=== PATIENT | male | born 1940 | race Caucasian/White ===

== ENCOUNTER 2020-11-17 15:25 | Emergency (ER) | payer OTHER ==
[~2020-11-17] VITALS: Ht 177.8 cm; Wt 79.4 kg
[~2020-11-17 15:25] MED LIST: ASPIRIN325 PO; CALM PO; CELEBREX PO; DIATOMACEOUS EARTH; NEURONTIN 300300 M1 PO; OXYCODONE HCL 55 MG PO; PEPCID AC20 M1 PO; PERCOCET 5-3251 EACH PO; XARELTO10 MG PO; [UNRECOGNIZED DRUG - OTHER] PO
[2020-11-17 15:50] LABS: URINE BILIRUBIN NEGATIVE (Negative); URINE BLOOD NEGATIVE (Negative); URINE CLARITY CLEAR; URINE COLOR YELLOW; URINE GLUCOSE-RANDOM* NEGATIVE (Negative); URINE KETONES NEGATIVE (Negative); URINE LEUKOCYTES-REFLEX NEGATIVE (Negative); URINE NITRITE-REFLEX NEGATIVE (Negative); URINE PROTEIN (DIPSTICK) NEGATIVE (Negative); URINE SPECIFIC GRAVITY >= 1.030 (1.005-1.035); URINE UROBILINOGEN 0.2 E.U./dl (0.2-1.0)
[2020-11-17 16:18] LABS: ABSOLUTE NEUTROPHILS 2.2 thou/uL (1.4-8.2); BASOPHILS 1.1 % (0.0-2.0); HEMATOCRIT 43.2 % (42.0-52.0); HEMOGLOBIN 14.8 gm/dL (14.0-18.0); LYMPHOCYTES 37.5 % (24.0-44.0); MCH 33.3 pg (26.0-34.0); MCHC 34.2 g/dL (28.0-37.0); MCV 97.3 fL (80.0-100.0); MONOCYTES 11.3 % (1.0-8.0); PLATELET COUNT 229 thou/uL (150-400); POLYS 41.1 % (36.0-66.0); RBC 4.44 mil/uL (4.50-6.00); RDW 12.9 % (10.5-14.5); WBC 5.3 thou/uL (4.0-11.0)
[2020-11-17 16:28] LABS: CALCIUM 9.3 mg/dL (8.5-10.1); CREATININE 1.1 mg/dL (0.7-1.3); POTASSIUM 4.2 mmol/L (3.5-5.1)
[2020-11-17 16:34] LABS: ALBUMIN 3.7 g/dL (3.4-5.0); TOTAL BILIRUBIN 0.3 mg/dL (0.2-1.0); TOTAL PROTEIN 7.5 g/dL (6.4-8.2)
[2020-11-17 16:47] VITALS: BP 121/76
--- NOTE | 2020-11-18 07:15 | EKG ---
[place] [address] [facility] [employer] [place] [address] ELECTROCARDIOGRAM REPORT Name: AMERICA SMITH [id number] Admission: 11/17/20 Attend Phys: Discharge: 11/17/20 Date of : 42 Report #: [id number] [facility] ED Test Date: 2020-11-17 Test Time: 15:54:23 Pat Name: AMERICA SMITH Department: Room: Gender: Management Planner: : 1940 Requested By: Juan Lea Order Number: [id number] MD: Bakari Mackey Measurements Intervals [place] Rate: 79 P: 9 SC: 228 QRS: -34 QRSD: 153 T: -2 QT: 393 QTc: 451 Interpretive Statements Sinus rhythm Atrial premature complex Prolonged SC interval Right bundle branch block No previous ECG available for comparison Electronically Signed On 11-18-2020 7:15:38 CDT by Bakari Mackey [email or web address] <ELECTRONICALLY SIGNED> By: Bakari Mackey MD, [facility] 11/18/20 0715 1554 1554 Bakari Mackey MD, FACC /EPI
== END 2020-11-17 16:48 ==
LOC: ER 15:25
PROVIDERS: Physician Assistant
DX: F91.1 Conduct disorder, childhood-onset type (principal); R45.1 Restlessness and agitation; F03.90 Unspecified dementia, unspecified severity, without behavioral disturbance, psychotic disturbance, mood disturbance, and anxiety; Z79.2 Long term (current) use of antibiotics; Z79.82 Long term (current) use of aspirin; Z90.49 Acquired absence of other specified parts of digestive tract; Z90.89 Acquired absence of other organs; Z20.822 Contact with and (suspected) exposure to COVID-19

== ENCOUNTER 2020-11-17 16:20 | Inpatient (IN) | payer OTHER ==
[2020-11-17 17:00] VITALS: BP 130/81
--- NOTE | 2020-11-17 19:54 | NUR ---
Admitted via ER for aggressive behavior toward hospice caregivers and granddaughter. Hx of dementia, arthritis, tonsilectomy and seizure d/o as a child. Alert and orientated X1. Denies SI/HI. Flat affect, calm and cooperative. Breath sounds clear. Reg HR auscultated. Color pink with brisk capillary refill and palpable peripheral pulses +2/+4. No edema noted. Independent with voiding. States he had BM yesterday. Active bowel sounds over soft, rounded abdomen. Ambulates with regular gait. States he walks with cane at home. Consents obtained via phone from DPOA and daughter Preethi Sanchez. Dr. Hernandez here, placed orders. CLAIM REP Cindi notified of new admission, on unit seeing pts for Dr. Rajput. States she will notifiy Dr. Rajput and that consult will take place on nights. Ate dinner. Ambulating in halls requesting to go home.
--- NOTE | 2020-11-18 05:15 | NUR ---
11-17-20 CARE TRANSFERRED 0 OBSERVED PT PACING IN HALLWAY. PT AAOX1, VSS, RR EVEN AND NONLABORED ON RA. PT DENIES SI/HI AND PAIN. PT PRESENTS ANGRY AND AGITATED. PT REPORTS HE NEEDS TO GO HOME TO HIS . PT AGITATION INCREASED AND PT BECAME INTRUSIVE AND COULD NOT BE DIRECTED OUT OF ANOTHER PT ROOM AND SECURITY WAS CALLED. HCP Marlena GONCALVES, TACHO CONTACTED AND ORDERS RECEIVED AND ADMINISTED. LATER PT HAD CALMED DOWN AND WAS SOCIAL INTERACTIVING WITH OTHERS AND WAS COOPERATIVE. LATER PT WAS ASSISTED TO ROOM AND PT VOIDED IN TOLIET, YELLOW, NO SIDMENT NOTED. PT BED WAS ADJUSTED FOR COMFORT, LOWEST POSITION, LOCKED AND ALARM SET. PT WILL CONTINUE TO BE MONITOR PER [facility] PROTOCOL.
[2020-11-18 06:54] LABS: CHOLESTEROL 162 mg/dL (<200); HDL CHOLESTEROL 45 mg/dL (>40); LDL CHOLESTEROL 88 mg/dL (<100); TC:HDL 3.6 Ratio (Not establshd); TRIGLYCERIDE 146 mg/dL (<150); VLDL 29 mg/dL (<40)
[2020-11-18 06:56] LABS: SERUM ASSESSMENT Clear
[2020-11-18 09:20] VITALS: BP 122/89
--- NOTE | 2020-11-18 18:26 | NUR ---
Assumed pt care at 0700. pt was in the day room socializing. Alert and oriented to person. irritable and aggressive upon assessments. pt was confused. NO sign of si/hi noted. No c/o pain. vital sign stable. Pt took med whole, no difficulty noted. No sign of acute distress NOTED upon assessments. Ambulates with a steady gait. Pt was aggressive and very intrusive with other pt. pt pulls other pts blanket, water bottle and other belongings away from them. pt was redirected. pt continued to be intrusive. staff redirected pt and he was aggressive towards staff pointing a pencil at staff. Dr Hernandez was notified about pt behavior. 1309 PO PRN olanzapine was administered. pt continue to pulled and lift chairs in the day room. pt was redirected. PT continued to be very intrusive to other pt in a threatening manner. pt was redirected. pt grabbed staff name homero. pt was redirected. Security was called for assistance. 1344 Dr Hernandez was notified, Geodon was ordered and administered. Pt began to pace the unit wandering into other pt rooms. pt was redirected. pt continue to be aggressive, extremely agitated, and intrusive.1716 LORAZEPAM IM was ADMINISTERED. PT WAS ONE TO ONE WITH A STAFF IN HIS ROOM. At 1811 and 1815 Hadol and LORAZEPAM WAS ADMINISTERED FOR increased agitation and aggressiveness. At this TIME PT IS IN HIS ROOM WITH STAFF MONITORING HIM. Will CONTINUE TO MONITOR.
--- NOTE | 2020-11-18 19:04 | NUR ---
PT NOTED TO BE INTRUSIVE WITH [facility] PEERS-ENTERING ROOMS OF OTHERS AND TOUCHING AND YELLING AT THEM. WHEN STAFF ATTEMPTED TO REDIRECT BECAME COMBATIVE STRIKING OUT AT STAFF BANGING ON EXIT DOORS AND DOMINGUEZ-GEODON 15MG GIVEN IM AT 1300 WITH ASSISTANCE OF SECURITY.DR PUTNAM ON FLOOR AND VERBAL ORDER RECEIVED FOR 1;1 -NURSING CANT GANG SAWYER CONTACTED. PT CONTINUES AGITATED,INTRUSIVE AND COMBATIVE DR. PUTNAM CONTACTED AND ORDERS RECIVED FOR ATIVAN 1.5MG IM-GIVEN AT 1615 IN LEFT HIP WITH ASSISTANCE OF SECURITY-THIS RN 1;1 WITH PATIENT PER MD ORDER FOR COMBATIVNESS,INTRUSIVE BEHAVIOR-STRIKING OUT AT STAFF AND PEERS. REMAINED AWAKE AND PACING IN HALLWAYS,POUNDING ON EXIT DOORS AND DOMINGUEZ,ENTERED MALE PEERS ROOM AND WAS GRABBING HIS ARM STATING "COME ON GET UP-2-3 STAFF ATTEMPTED TO REDIRECT AND HE STRUCK THIS RN" DR PUTNAM CONTACTED BY Dorothea MAX MATE FIRST AND ORDER RECEIVED FOR 4 POINT LEATHER RESTRAINTS-NURSING CANT GANG SAWYER CONTACTED-NO RETURN CALL RECEIVED-SECURITY TO FLOOR AT 1645 AND PLACED IN BILATERAL WRIST AND ANKLE RESTRAINTS IN ROOM-STAFF AT BEDSIDE AND CSM/FLUIDS/TOIOLETING OFFERED Q 15 MIN PER PROTOCOL. RESPIRATIONS EVEN AND REGULAR-REMAINS RESTLESS WILL CLOSE EYES FOR SHORT PERIODS OF TIME-CONTINUES TO YELL OUT FOR UNSEEN OTHERS AND STATES HE NEEDS TO GO OUT AND GET THE HORSES. SKIN W/D-TAKES SIPS OF WATER Q 10-15 WHEN OFFERED. REPEAT MESSAGE LEFT FOR NURSING CANT GANG SAWYER AT 1745 RE COMPLETION OF FACE TO FACE ASSESSMENT PER POLICY-AWAITING RETURN CALL. [id number] DR HARRISON CONTACTED AND UPDATED RE PT STATUS,VS,-INFORMED OF CONTINUED RESTLESSNESS,AGITATION AND INABILITY TO FOLLOW VERBAL COMMANDS/REDIRECT WITHOUT SIGNIFICANT AGITATION-PT HALDOL 7.5MG AND ATIVAN 0.5MG GIVEN IM AT 1815 -REMAINED RESTLESS,YELLING AND HALLUCINATING UNTIL APPROX 1900 WHEN SECURITY CONTACTED AND REMOVED FROM RESTRAINTS WAS CALM,ABLE TO FOLLOW VERBAL DIRECTIONS. 1;1 AT BEDSIDE PER MD ORDER. DAUGHTER PHANI CHANG CONTACTED BY THIS RN AT 1700 REGARDING PT BEING PLACED IN RESTRAINTS AND IM MEDICATIONS GIVEN. SHE STATES UNDERSTANDING AND DENIES QUESTIONS/CONCERNS. A
[2020-11-18 23:06] LABS: GLYCOHEMOGLOBIN (HGB A1C) 5.7 % (4.8-5.6)
--- NOTE | 2020-11-19 04:53 | NUR ---
PRIOR TO SHIFT REPORT OBSERVED SECURITY WITH OFF GOING RN REMOVING 4 POINT RESTRAINTS OBSERVED PT REFUSING VS. 11-18-20 CARE TRANSFERRED 1914. PT PRESENTED RESTLESS AND AGITATED WITH EYES CLOSED. LATER PT AAOX1, 2ND ATTEMPT FOR VS AND PT BECAME AGITATED, PT STILL MAINTAINING EYES CLOSED. DURING MEDICATION ADMIN, PT REFUSED PO MEDICATION. LATER PT AGITATION CONTINUE AND WAS SWATTING AND GRABBING AT STAFF. HCP CONTACTED AND ORDERS RECEIVED AND ADMIN WITH RHETT HOLD. LATER NOTED PT CALMER AND RESTING WITH EYES CLOSED. RESPONSED TO PT YELLING WITH SERVE AGITATION, STATING HE NEEDS TO LEAVE RIGHT NOW, BEGAIN SWATTING AND GRABBING STAFF. HCP CONTACTED AND ORDERS RECEIVED AND ADMIN WITH RHETT HOLD. LATER NOTED PT RESTING WITH EYES CLOSED. OF NOTE, PT HAS BEEN ON 1:1 THROUGHOUT SHIFT, WILL CONTINUE UNTIL ORDER ENDS.
--- NOTE | 2020-11-19 09:50 | NUR ---
New admit to [facility] with dementia and increased behaviors. Combative and requires 1:1 sitter. Noted with low intakes and refusals at meals. Reported weight from late 2019 216#, current weight 211#; no significant changes noted recently. Lives at home with , on hospice services and has private nursing care in the home. He is at risk for weight loss d/t refusals of meals and changes in cognition/advancement of dementia. Will add Ensure enlive at meals for additional kcal/pro. Meds and labs reviewed. Will follow weight and intake trends during stay. Low nutrition risk at this time with interventions initiated.
--- NOTE | 2020-11-19 14:12 | NUR ---
Alert and orientated to name only. Sleeping in bed until about 0930 then got up and placed in gerichair where he slept until lunch. Calm, cooperative, able to assist with transfer and with cares. Denies SI/HI. Confused speech. Up around 2 pm and ambulating under supervision with steady gait. Began exit seeking and stating that he wanted to leave. More resistant to sitting down and following direction. Took olanzapine and seraquel crushed in pudding without difficulty. Breath sounds clear. Reg HR auscultated. Color pink with brisk capillary refill and palpable peripheral pulses. Incontinent of yellow urine this AM. Active bowel sounds over soft, rounded abdomen. Currently sitting in day room without s/o distress.
[2020-11-19 16:26] VITALS: BP 133/95
--- NOTE | 2020-11-20 05:37 | NUR ---
11-19-20 CARE TRANSFERRED 0 OBSERVED PT SITTING IN DAY ROOM IN RECLINER. LATER PT AAOX1, VSS, RR EVEN AND NONLABORED ON RA, PT DENIES SI/HI AND PAIN. 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 DURING MEDICATION PT HAD NO DIFFICULTIES, BUT SHOWS AGGRESSIVE WITH MOVEMENTS. LATER OBSERVED PT TIP OVER TABLE AND PT GRABBING AT STAFF. HCP CONTACTED AND ORDERS RECEIVED AND ADMIN. LATER NOTED PT CALM AND RESTING. LATER PT BECAME RESTLESS AND TALKING, THEN CALMED DOWN AND RESTING WITH EYES CLOSED, HCP ORDERS HAVE BEEN CARRIED OUT ON 1:1. PT WILL CONTINUE TO BE MONITOR PER [facility] PROTOCOL.
--- NOTE | 2020-11-20 09:02 | NUR ---
0902 assumed care of pt from overnight nurse. pt sitting in gerichair in dining room at beginning of shift. pt answers to name, alert times 1. pt lungs clear,bowel sounds present and abdomen soft. pt compliant w medications. pt requested cup of coffee but refusing breakfast at this time. pt refused to have vital signs taken. pt denies pain, HI/SI/AH/VH at this time. pt is a 1:1 for agitation, hitting of staff. will cont to monitor pt for safety and behaviors.
--- NOTE | 2020-11-20 11:28 | NUR ---
1116 pt in dining room in [facility] attempted to jump out of the chair. pt aggressive and attempting to hit staff. pt was given 5 mg of Zyprexa IM for agitation. pt tolerated the injection w no issues. will cont to monitor pt for behaviors and safety.
--- NOTE | 2020-11-20 11:59 | NUR ---
1200 pt sitting in Gerichair asleep w no issues. pt no eating lunch at this time. will cont to monitor for behavior and safety.
--- NOTE | 2020-11-20 14:15 | NUR ---
1415 this nurse talked w son after confirming security code. SonRic wanting to get an update on pt behavior and when pt will possibly discharge home. SonRic stated that his mother is in process of dying and thinks that is what is causing the patient's stress level. Encouraged the son to talk with doctor and oncology social work for possible discharge information.
--- NOTE | 2020-11-20 14:17 | NUR ---
1517 this nurse reutrning phone call from this patient's daughter. VM left at phone number given using HIPAA, for daughter to return this nurse's phone call.
--- NOTE | 2020-11-20 14:24 | NUR ---
1300 pt with behaviorial issues. pt attempting to get out of gerichair and slide down to the floor. pt refusing to keep yellow t shirt on after several attempts to put the t shirt on. pt goes in and out of sleep throughout the afternoon. pt placed back on 1:1 while awake for safety. will cont to monitor the pt for behavior and safety/
--- NOTE | 2020-11-20 17:07 | NUR ---
1707 pt given 5 mg Zyprexa IM for agitation. Pt pulling on clothes, trying to get out of gerichair without assistance. Pt pulling legs off of gerichair and trying to get up. will cont to monitor for behavior and safety.
--- NOTE | 2020-11-20 17:41 | NUR ---
JOSAFAT and Dr. Muñoz participated in a family meeting via phone. Included on this call was Codi( Pt's daughter in law [phone]), Trish (Interim hospice provider [phone]), Preethi (Pt's daughter/DPOA [phone]), William ( Pt's son-in- law). An update was given on the Pt. Medications were discussed. A recommendation for 24 hour care that may include a LTC placement was given. Codi stated " Why can't he stay in his home instead of being in that place". Dr. Muñoz explained the barriers that may be posed with the Pt being in the home without the proper supports. Currently there is 1 personal care aid in the home caring for the Pt and his . Codi then asked " Why can't you all put someone in the home to help then, why is he there any way". JOSAFAT educated on the role of the hospital to assess, treat, provide a recommendations for care, and assist family with setting up after care services for the Pt. JOSAFAT explained that the hospital could not provide a service provider to come into the home to provide care for the Pt. JOSAFAT explained that the DPOA would be responsible for ensuring the Pt has the proper care if they chose to have the Pt return home. JOSAFAT explained one care provider was not enough to care for two people with high needs in the home. They family would need to add additional caretakers to ensure the Pt is safe. William stated that he and Preethi live next door and would be able to provide additional services when needed for the Pt. William stated they would like the Pt to return to his home after the Pt's medications are adjusted and Pt's behaviors are managable. Codi asked "So is he just sitting around doing nothing all day?". JOSAFAT explained the [facility] schedule and groups. JOSAFAT offered to send the welcome infomation to the Pt. Family had no further questions or concerns. JOSAFAT sent welcome information to Codi at and resent to preethi at JOSAFAT will continue to follow
--- NOTE | 2020-11-20 18:37 | NUR ---
1829 pt trying to overturn table, trying to slide out of gerichair and yelling at staff and peers. pt oriented to self only. ordered requested for PRN. pt stated that he wants to get out of here. pt given IM 1 mg Ativan and IM 7.5 mg Haldol. pt tolerated injection w no issue. will cont to monitor pt for behaviors and safety.
[2020-11-20 19:21] VITALS: BP 117/95
[2020-11-20 19:30] VITALS: BP 117/95
--- NOTE | 2020-11-20 22:54 | NUR ---
Assumed care on 11/20/20 @ 1900, seated in alesia chair in the day room with 1:1 staff assistance while awake. Occasional calling out, and behaviors noted. Became drowsy and closed eyes, respirations even and unlabored. Awakened and accepted medications whole with pudding and water. Transferred to bed @ , bed alarm set, bed in low position. Daughter Preethi called for an update on patient. A&Ox1, respirations even and unlabored bilat, HRRR, ABD N x 4Q. Incontinent of bladder. Will continute to monitor as per unit protocol for safety and comfort.
--- NOTE | 2020-11-21 11:14 | NUR ---
Assumed pt care at 0700. pt was in the day room sleeping. pt refused vital sign assessments. pT was sedated, meds were not given. NO sign of acute distress noted at this time. No sign of si/hi noted. Pt ambulates with unsteady gait. At this time pt is sleeping on the Sharifa chair in the day room. Will continue to Monitor.
--- NOTE | 2020-11-21 14:21 | H ---
[facility] [place] [address] [place] [address] HISTORY AND PHYSICAL Name: AMERICA SMITH Room #: 523B-B ADM IN M.R.#: [id number] Admission: 11/17/20 Attend Phys: Facundo Hernandez DO Discharge: Date of : 42 Report #: [id number] THIS REPORT FOR: cc: FAM - No family physician/PCP FAM - No family physician/PCP Facundo Hernandez DO ~ DATE OF SERVICE: 11/17/2020 INPATIENT PSYCHIATRIC EVALUATION ATTENDING PSYCHIATRIST: Facundo Hernandez DO GROUP HOME WORKER: Joyce Segundo APRN; and Alexandre Haque MD, and his hospitalist team. SOURCES OF INFORMATION: Interview with the patient, collateral from nursing home visit notes as well as other medical records. The patient reportedly lives at home with his who is on hospice. 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 His daughter, Preethi Sanchez, at [phone], is his power of college service officer. Concerns were that he was wandering, leaving the home and being violent towards caregivers that are trying to help his , threatening caregivers. His main medical issue besides the dementia is the arthritis. Primary care physician is Chase Max at [phone]. The patient had a home med list that had Mobic on it, vitamin D, ibuprofen, citicoline 1000 mg tablet 2 times a day, been on Lexapro 20 mg daily, Seroquel 25 mg tablet one tablet oral 2 times a day. He had a Cipro course at the end of September, p.r.n. Haldol, looks like it is liquid Haldol and he was on scheduled Haldol 0.5 mg 3 times a day. It looks like there was a discussion on 09/07 about him being placed in a memory care unit, but the family wanted to continue. Looks like there are nursing home notes. I found Mandyal that looks like it is from May of this year, 79-year-old male admitted with primary diagnosis of senile degeneration of the brain. The patient is a poor historian. Daughter is unaware to recall what his medical history is, as the patient spent most of his focus on his . The patient states he did have his left knee replaced, but then his started getting sick before he could have surgery on the other knee. He reports he has pain in his right knee frequently. Decline has been noticed in the patient's cognition. He was managing his 's meds till towards the end of 2019. Apparently, the patient had a facial basal cell biopsy and since has cognitively a steady decline. The patient months ago would tell [facility] [address] [place] [address] HISTORY AND PHYSICAL Name: AMERICA SMITH Room #: 523B-B ADM IN M.R.#: [id number] Admission: 11/17/20 Attend Phys: Facundo Hernandez, Discharge: Date of : 42 Report #: [id number] stories about he and his from looking at a picture, now is unable to complete a story do well enough that we could even make sense of it. The patient during the visit was trying. Also, he was weighing 216 pounds on 04/20/2020; and on 05/27/2020, he was down to 200 pounds. He has been noted to wear his 's clothing. PAST MEDICAL HISTORY: Basal cell skin neoplasm, osteoarthritis, seizure disorder as a child, vitamin D deficiency. PAST SURGICAL HISTORY: Tonsillectomy. FAMILY HISTORY: The patient's mother , the patient cannot remember; father , meningitis; sister alive; daughter alive; son alive. One sister, 2 sons, 2 daughters. SOCIAL HISTORY: No alcohol use history. Never smoked. . ALLERGIES: No known allergies. RECENT LABORATORY DATA: 04/21/2020, white count 6.1, H and H 14.6 and 41.9, platelet count 244. CMP showed glucose 93, BUN 22, creatinine 0.89, EGFR 82, sodium 142, potassium 4.2, chloride 107, bicarbonate 30, calcium 6.9, total protein 4.2, albumin 2.7, bilirubin 0.4, alkaline phosphatase 66, AST 18, ALT 16, vitamin D total 23, TSH 0.97. ____ HDL 51, total cholesterol 174, triglycerides high at 238. Additional labs on the patient, from ER visit yesterday on 11/17/2020, H and H 14.8 and 43.2, white count 5.3, platelet count 229. Chemistry: Sodium 140, potassium 4.2, chloride 105, bicarbonate 30, BUN 28, creatinine 1.1, estimated GFR 65, glucose 95, calcium 9.3, total bilirubin 0.3, AST 20, ALT 26, alkaline phosphatase 72, total protein 7.5, albumin 3.7, triglycerides 146, cholesterol 162, LDL 88, HDL 45. Urinalysis was clean. COVID-19 PCR serology was negative. PHYSICAL EXAMINATION VITAL SIGNS: Temperature 36.0, pulse 61, respirations 17, BP 122/89, O2 sat 94%. MUSCULOSKELETAL EXAM: Wearing a hat. Normal gait and station, unkempt. MENTAL STATUS EXAMINATION: This is a well-developed, older than age-appearing male. Attention limited. The patient is hard of hearing. Concentration limited. Speech slow. Normal volume and tone. Thought process linear and goal directed. Thought content, focused on being discharged and going for a walk, looking to go outside. No suicidal or homicidal ideation. No auditory or visual type hallucinations. nmood/affect- depreressed, restricted, congruent Some helplessness and hopelessness. [facility] [address] [place] [address] HISTORY AND PHYSICAL Name: AMERICA SMITH Room #: 523B-B ADM IN ..#: [id number] Admission: 11/17/20 Attend Phys: Facundo Hernandez DO Discharge: Date of : 42 Report #: [id number] Memory not formally tested, known to be impaired. Insight is impaired, judgment is impaired. Fund of knowledge well below average. FORMULATION: A 80-year-old male sent out for being delusional and aggressive behavior towards hospice workers. DIAGNOSES: At this time, major neurocognitive disorder, likely due to Alzheimer's disease with behavioral disturbance. Medical comorbidities include hyperlipidemia, arthritis, possible falls. IMAGING ON THIS ADMISSION: None. PLAN: Admit to Geriatric Psychiatry Unit via DPOA. Evaluate, stabilize, obtain collateral. Regarding his current medications, continue Mobic 50 mg p.o. daily, famotidine 40 mg p.o. daily, Seroquel is 25 mg 3 times a day. He is on olanzapine p.o. with IM p.r.n., otherwise house PRNs. ESTIMATED LENGTH OF STAY: 7 to 14 days. STRENGTHS: He is insured. WEAKNESSES: Does not have a placement, is on hospice, limited social support. I am going to give a call to Ms. Sanchez and see if she can give me some additional information. <ELECTRONICALLY SIGNED> By: Facundo Hernandez DO 11/21/20 1421 1112 1338 Facundo Hernandez DO /nt
[2020-11-21 19:33] VITALS: BP 128/98
[2020-11-21 20:34] VITALS: BP 128/98
--- NOTE | 2020-11-21 21:34 | NUR ---
Assumed care on 11/21/20 @ 1900, seated in day room in a alesia chair with eyes closed, respirations even and unlabored. Takes meds whole with pudding and water. some agitation noted, continues on 1:1 while awake.
[2020-11-22 09:13] VITALS: BP 106/68
[2020-11-22 10:38] VITALS: BP 106/68
--- NOTE | 2020-11-22 14:36 | NUR ---
Assumed pt care at 0700. Pt was alert and oriented to person. Vital sign stable, active bowel sounds.Pt was confused, irritable and aggressive upon assessments. No sign of SI/HI noted upon assessments. Pt took meds whole, no difficulty noted. Ambulates with a steady gait. Pt was aggressive and agitated. pt was redirected. pt continued to be aggressive towards staff. pt was crawling, sitting on the floor. 1429 DATA MODELING SPECIALIST jl was notified of pt behaviors. Olanzapine 5mg PRN was administered. At this time pt is in the day room aggitated and aggressive. Will continue to monitor pt.
[2020-11-22 19:24] VITALS: BP 134/65
--- NOTE | 2020-11-23 02:55 | NUR ---
11-22-20 CARE TRANSFERRED 1899 OBSERVED PT SITTING IN DAY ROOM RESTING WITH EYES CLOSED IN RECLINER. LATER PT AAOX1, VSS, RR EVEN AND NONLABORED ON RA, PT DENIES PAIN AND SI/HI AND OBSERVED NO S/S OF PAIN AND NO SI/HI BEHAVIORS. PT WAS HORSE PLAYING AND ACTING LIKE HE WAS GOING TO HIT THIS CREDIT SPECIALIST, PT STATED "I WAS JUSTED TESTING YOU, YOU PASSED." DURING MEDICATION ADMIN PT HAD NO DIFFICULTIES TAKING WHOLE WITH WATER. PT IS CURRENTLY ON 1:1 WHILE AWAKE, PT WILL CONTINUE TO BE MONITOR IN DAY ROOM FOR PT SAFETY.
[2020-11-23 08:00] VITALS: BP 109/70
--- NOTE | 2020-11-23 08:31 | NUR ---
0831 ASSUMED CARE OF PT FROM OVERNIGHT NURSE. PT SITTING IN GERICHAIR SLEEPING AT BEGINNING OF SHIFT. PT ALERT TO SELF. PT DENIES PAIN. PT LUNGS CLEAR. PT BOWEL SOUND PRESENT AND ABDOMEN SOFT. PT NOT ABLE TO VERBALIZE IF SI/HI/AH/VH. PT DROWSY AT THIS TIME, BUT ABLE TO TAKE MEDICATIONS. VSS. WILL CONT TO MONITOR PT FOR BEHAVIORS AND SAFETY.
[2020-11-23 09:51] VITALS: BP 109/70
--- NOTE | 2020-11-23 11:28 | NUR ---
1128 THIS NURSE TALKED W PHANI CHANG, REGARDING THE STATUS OF PT. SECURITY CODE GIVEN BY FAMILY MEMBER. FAMILY MEMBER TO CALL LATER TO CHECK ON STATUS OF PT BEFORE END OF SHIFT OF THIS NURSE.
--- NOTE | 2020-11-23 16:09 | NUR ---
1550 pt in dining room trying to get out of gerichair without assistance and yelling and trying to hit staff. pt could not be redirected after several attenpts. MD contact for orders. Pt given 5 mg Zyprexa IM times one. will cont to monitor pt for behavior and safet.
[2020-11-23 20:13] VITALS: BP 130/65
[2020-11-23 20:40] VITALS: BP 130/65
--- NOTE | 2020-11-24 05:15 | NUR ---
PATIENT HAS BEEN SITTING UP IN REYES CHAIR IN DINING ROOM. HE HAS BEEN CALM AND COOPERATIVE. HE DENIES PAIN. NO SIGNS OF SI/HI/AVH. PATIENT TOOK MEDS WHOLE WITH WATER WITH ASSISTANCE. PT HAVING ROUTINE INCONTINENCE CHECKS. PATIENT UP IN DINING ROOM ALL NIGHT. CONTINUING TO MONITOR.
[2020-11-24 09:33] VITALS: BP 122/79
--- NOTE | 2020-11-24 12:13 | NUR ---
RT Progress Note- Ric has been minimally engaged in the milieu and recreation therapy groups since admission. Ric is difficult to engage and he has a hard time following instruction, leaving him to be more of a passive participant. Ric spends much of unscheduled time chatting to himself about work, etc when awake. SPORT PSYCHOLOGIST will continue to encourage participation and progress towards goals.
--- NOTE | 2020-11-24 14:54 | NUR ---
PT ALERT TO SELF ONLY. VSS. PT WILL NOT ANSWER ASSESSMENT QUESTIONS. PT UP TO SITTING IN THE CHAIR FOR MOST OF THE SHIFT. PT TOLERATES MEDS MEALS. WILL CONTINUE TO MONITOR.
--- NOTE | 2020-11-25 05:28 | NUR ---
11-24-20 CARE TRANSFERRED 1900 OBSERVED PT SITTING IN DAY ROOM IN RECLINER. LATER PT AAOX1, VSS, RR EVEN AND NONLABORED ON RA. PT DENIES PAIN AND SI/HI AND NO S/S OF PAIN AND OBSERVED NO SI/HI BEHAVIORS. PT PRESENTS CONFUSED, CALM AND COOPEATIVE DURING NURSING ASSESSMENT. DURING MEDICATION ADMIN PT HAD NO DIFFICULTIES TAKING MEDICATION WITH ICE CREAM. LATER PT WAS TAKEN BACK TO ROOM AND PT WAS COMBATIVE THROUGH CARES, HEAVY BRIEF WITH YELLOW URINE AND SMEAR OF BM, NO REDNESS NOTED. OF NOTE, PT HAS BEEN ON 1:1 PER HCP ORDERS WHILE AWAKE. PT WILL CONTINUE TO BE MONITOR PER [facility].
[2020-11-25 10:44] VITALS: BP 118/80
--- NOTE | 2020-11-25 10:46 | NUR ---
Followup; remains on [facility]. No new wt to assess. Intake levels have been variable 0-85% and taking ensure supplement 75-100%. Continue oral supplement. Remains low nutrition risk
--- NOTE | 2020-11-25 13:35 | NUR ---
PATIENT HAS BEEN UP, AND OUT IN DAYROOM , SITTING IN GERICAIR. PATIENT TOOK MORNING MEDICATION WHOLE WITHOUT DIFFICULTY, HE IS EATING MEALS, AND DRINKING FLUID WELL WITH CUE FROM STAFF. PATIENT IS ALERT, FORGETFUL, AND PLEASNANTLY CONFUSED. PATIENT NOTED RESPONDIG TO INTERNAL STIMULI, TALKS TO SELF, AND UNSEEN OTHERS. PATIENT DENIES SUICIDAL/HOMICIDAL IDEATION, NOT ABLE TO APPROPRIATELY RESPOND TO FURTHER ASSESSMENT QUESTIONS DUE TO COGNITIVE IMPAIRMENT. INCONTINENT CARE PROVIDED PER STAFF. NO AGGRESSION OR AGITAION NOTED AT THIS TIME. AFFECT IS FLAT/BLUNTED, MOOD IS EUTHYMIC. NO SIGN OF ACUTE DISTRESS NOTED AT THIS TIME, WILL CONTINUE TO REDIRECT, AND MONITOR FOR SAFETY.
[2020-11-25 20:08] VITALS: BP 115/58
[2020-11-26 11:06] VITALS: BP 122/76
--- NOTE | 2020-11-26 15:17 | NUR ---
Sitting in dining room in gerchair without s/o distress. Able to state name only, denies SI/HI. Stands with assistance during assessment but did not attempt to ambulate. Breath sounds clear. Reg HR auscultated. Color pink with brisk capillary refill and palpable peripheral pulses. Brief dry. Active bowel sounds over soft, rounded abdomen. Took meds crushed in pudding. Sitting in dining room without s/o distress.
--- NOTE | 2020-11-27 04:18 | NUR ---
ASSUMED CARE AT APPROX 1900. PATIENT SITTING IN DAY ROOM IN REYES CHAIR AT THAT TIME. TOOK SOME MEDS CRUSHED IN PUDDING AND DEPAKOTE ER WHOLE IN PUDDING. PATIENT HAD DIFFICULTY SWALLOWING THE DEPAKOTE TABLETS, TOOK SEVERAL ATTEMPTS WITH WATER AND MORE PUDDING. LATER BECAME IRRITABLE, VERBALLY AGITATED AND YELLING OUT. GIVEN PRN ZYPREXA PER ORDERS, THIS WAS EFFECTIVE. NO FURTHER AGITATION OR AGGRESSIVENESS FROM PATIENT NOTED. CONTINUES ON 1:1 WHILE AWAKE.
[2020-11-27 09:24] VITALS: BP 135/77
--- NOTE | 2020-11-27 16:11 | NUR ---
Very verbal today with several episodes of standing up and shouting. Alert to name only. Denies SI/HI. Breath sounds clear. Reg HR auscultated. Color pink with brisk capillary refill and palpable peripheral pulses. No edema noted. Incontinent of yellow urine. Active bowel sounds over soft, rounded abdomen. Able to stand and assist with transfer to commode. Does not attempt to walk.
--- NOTE | 2020-11-27 16:53 | NUR ---
JOSAFAT called Preethi concerning discharge. JOSAFAT informed Pt would be discahrge on 11/30/2020. Preethi stated she would be picking the Pt up and transporting him back home. JOSAFAT encouraged Preethi to bring assistance due to the level of care Pt needs at this time. Preethi stated the plan was to bring the Pt back home and provide additional support in the home to care for the Pt. Preethi inquired about Pt's sleep. JOSAFAT gave sleep hours for last two days and informed this will continued to be monitored by the the doctor and a determination made if Pt would benefit from medications to help with sleep. Dr. Muñoz joined the conversation at this point and ensured he would give a sign off the to the weekend attending concerning the matter. There were no other question or concerns at this time. D/C set for 11/30/2020 @ 1300.
[2020-11-27 19:37] VITALS: BP 117/79
--- NOTE | 2020-11-28 07:00 | NUR ---
PATIENT'S DAUGHTER CALLED AT 0559 STATING SHE KNOWS PATIENT IS SUPPOSED TO BE DISCHARGED HOME ON MONDAY, BUT HIS IS "DOING VERY POORLY" AND SHE WISHES TO BRING HIM HOME TODAY. NOTIFIED DR. LENNON OF THIS DEVELOPMENT.
[2020-11-28 09:11] VITALS: BP 129/78
[2020-11-28] MEDS ORDERED: MOBIC15 MG PO (09:52)
[2020-11-28] MEDS ORDERED: DEPAKOTE SPRIN125 MG PO (09:53)
[2020-11-28] MEDS ORDERED: SEROQUEL 100 M100 M1 PO (09:56)
[2020-11-28] MEDS ORDERED: SEROQUEL 25 MG25 M1 PO (09:57)
[2020-11-28] MEDS ORDERED: PEPCID20 MG PO (09:58)
--- NOTE | 2020-11-28 09:58 | NUR ---
Pt's daughter, Preethi, requested to have the pt. discharged. The pt's is in the last stages of life and Preethi wants the pt. to be present. Preethi stated she did not know the pt. would have been here for approximately two weeks. She was expecting the hospitalization to last for two or so days. Dr. Hogan and Dr. Hernandez was contacted for the approval of the discharge which was given. The SW asked Preethi if the pt. had a primary care physician or psychiatrist to follow up with. Preethi stated the pt. is in hospice so that follow-up would not be necessary. Preethi did provide the information for the pharmacy ([facility], [place], [place]) which she also previously provided to Dr. Hernandez. The SW checked and the pharmacy has been entered.
--- NOTE | 2020-11-28 09:59 | NUR ---
Given in report that family wants to take him home d/t 's declining health. Alert with confused speech. Orientated to name only. Denies SI/HI. Compliant with meds this AM, took in ice cream. Able to stand and take a few steps with moderate difficulty transferring back to commode with one assist. Breath sounds clear. Reg HR auscultated. Color pink with brisk capillary refill and palpable peripheral pulses. Brief dry, buttocks slightly red. Active bowel sounds over soft, rounded abdomen.
[2020-11-28 10:03] VITALS: BP 129/78
--- NOTE | 2020-11-29 12:43 | D ---
[facility] [place] [address] [place] [address] DISCHARGE SUMMARY Name: AMERICA SMITH Room #: 523B-B [facility] IN M.R.#: [id number] Admission: 11/17/20 Attend Phys: Facundo Hernandez DO Discharge: 11/28/20 Date of : 42 Report #: [id number] THIS REPORT FOR: cc: FAM - No family physician/PCP FAM - No family physician/PCP Facundo Hernandez DO ~ DATE OF SERVICE: 11/28/2020 INPATIENT PSYCHIATRIC DISCHARGE SUMMARY ATTENDING ADAPTED PHYSICAL EDUCATION SPECIALIST: At time of discharge, Bonnie Hogan MD ADAPTED PHYSICAL EDUCATION SPECIALIST AT TIME OF DISCHARGE: Ann-Marie French MD. Please note, this was a discharge under unusual circumstances. The patient's is in hospice, deteriorated rapidly, and there was a request from the patient's daughter, Preethi to discharge on Monday morning, so the patient could be with his when she passed. The patient is being discharged home 14/11 care to be provided by the family with the assistance of [facility]. DISCHARGE MEDICATIONS: Meloxicam 15 mg oral daily for pain; Depakote Sprinkles 500 mg oral twice daily; Seroquel is going to be 175 mg oral at 0900 and 1500 hours, 225 mg oral at bedtime. The patient's medical care will be provided by [facility] physician. LABORATORY DATA: Significant laboratories from this admission are as follows: Hematology: H and H 14.8 and 43.2, white count 5.3, platelet count 229. Chemistries this admission, sodium 140, potassium 4.2, chloride 105, bicarbonate 30, anion gap 5, BUN 28, creatinine 1.1, estimated GFR 65, glucose 95. Hemoglobin A1c 5.7, calcium 9.3, AST 20, ALT 26, alkaline phosphatase 72, total protein 7.5, albumin 3.7. Triglycerides 146, cholesterol 162, LDL 88, HDL 45. Toxicology this admission was Depakote level of 54 on 11/23, I plan on a repeat Depakote level; however, this was not accomplished, this patient was discharged 2 days sooner than planned. Serology at time of discharge was just a COVID-19 Ferrer test from 11/17, which was negative. DIET: He is in hospice, which can be as tolerated. ACTIVITY LEVEL: The patient requires full assist with any ambulation and transfers. 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 The patient had had some recent elopements interfering with her life's care, sounds like mainly the hospice company pushed for psychiatric admission. [facility] [address] [place] [address] DISCHARGE SUMMARY Name: AMERICA SMITH Room #: 523B-B [facility] IN M.R.#: [id number] Admission: 11/17/20 Attend Phys: Facundo Hernandez DO Discharge: 11/28/20 Date of : 42 Report #: [id number] HOSPITAL COURSE: The patient was admitted to Geriatric Psychiatry Unit. The patient was started on Depakote regimen 250 b.i.d., I believe resulted in a low blood level of 54; this was increased to 500 b.i.d. In addition, Seroquel was used. The patient had significant agitation with cares, getting up unsafely, was frequently talking to unseen others. There was some management challenge in that regard as he did have periods requiring 1:1. The family was advised that he will be best cared for in a memory care facility; however, they insisted on taking the patient home. Discharge had been planned for 11/30, but as described in preface the daughter presented to the hospital on the morning of Monday, 11/28 and demanded that he be discharged due to her reported situation of his , her mother intermittently passing. The patient's prognosis is quite guarded. Vital signs at time of discharge, temperature 36.6, pulse 73, respirations 18, BP 129/78, O2 sat 96%. The patient's most recent weight, all reviewed for good measure, it is 95.799 kilos, which was the same weight to his admission. Dr. Hogan did the progress note, so I will refer to her note for the mental status exam at the time of discharge. <ELECTRONICALLY SIGNED> By: Facundo Hernandez DO 11/29/20 1243 22 52 Facundo Hernandez DO /nt
== END 2020-11-28 11:30 | disposition hospice, home (50) | DRG 884 ==
LOC: SBH
PROVIDERS: ADMIT Psychiatry & Neurology Psychiatry; ATTEND Psychiatry & Neurology Psychiatry
DX: F03.91 Unspecified dementia, unspecified severity, with behavioral disturbance (principal); E78.5 Hyperlipidemia, unspecified; M19.90 Unspecified osteoarthritis, unspecified site; F41.9 Anxiety disorder, unspecified; F32.9 Major depressive disorder, single episode, unspecified; Z96.652 Presence of left artificial knee joint; Z66 Do not resuscitate; Z51.5 Encounter for palliative care; Z85.828 Personal history of other malignant neoplasm of skin
CPT/HCPCS: 10880